=== PATIENT | female | born 1935 | race Caucasian/White ===

== ENCOUNTER 2022-07-13 15:27 | Emergency (ER) | payer MEDICARE, MEDICAID, BC ==
[2022-07-13] MEDS ORDERED: Albuterol/Ipratropium 3.0-0.5 MG/3 ML Neb Soln NEB PRN (15:41)
[2022-07-13] MEDS ORDERED: Sodium Chloride 0.9% 1,000 ML IV SCH (15:45)
[2022-07-13] MEDS ORDERED: LORazepam 2 MG/ML SDV SUBCUT ONE (17:56)
== END 2022-07-13 19:07 ==
LOC: JD.ED 15:27
DX: A41.9 Sepsis, unspecified organism (principal); R65.21 Severe sepsis with septic shock; J96.01 Acute respiratory failure with hypoxia; N18.5 Chronic kidney disease, stage 5; D63.1 Anemia in chronic kidney disease; I50.9 Heart failure, unspecified; I95.9 Hypotension, unspecified; E87.5 Hyperkalemia; J44.9 Chronic obstructive pulmonary disease, unspecified; F03.90 Unspecified dementia, unspecified severity, without behavioral disturbance, psychotic disturbance, mood disturbance, and anxiety; Z79.899 Other long term (current) drug therapy
CPT/HCPCS: 36415; 36600; 71045; 80053; 82553; 82803; 83605; 83735; 83880; 84484; 85007; 85027; 85610; 85730; 86140; 87040; 93005; 94640; J2060; J7030; 93010; 96360; 96361; 96372; 99285; 99285-25; J7620-GY